=== PATIENT | male | born 1970 | race Caucasian/White ===

== ENCOUNTER → 2017-08-06 | Outpatient (CLI) | payer OTHER ==
[2017-08-06 11:16] LABS: CHOLESTEROL LEVEL 196 MG/DL (<200); CHOLESTEROL RISK RATIO 3.161 (<5); HDL CHOLESTEROL 62 MG/DL (>40); LDL CHOLESTEROL 95.8 MG/DL (<100); NON-HDL-C 134 MG/DL; TRIGLYCERIDES LEVEL 191 MG/DL (<150)
== END ==
LOC: M LAB 10:17
DX: E78.5 Hyperlipidemia, unspecified (principal)
CPT/HCPCS: 80061